=== PATIENT | male | born 1955 | race Caucasian/White ===

== ENCOUNTER 2020-04-19 06:52 | Outpatient (RCR) | payer BC, SELFPAY ==
[2020-04-19] MEDS: COVID-19 VACC, MRNA(PFIZER)/PF 30 MCG/0.3 ML SYRINGE IM (14:25)
[2020-05-10] MEDS: COVID-19 VACC, MRNA(PFIZER)/PF 30 MCG/0.3 ML SYRINGE IM (13:46)
== END 2020-07-16 23:59 ==
LOC: IMMUN 06:52
PROVIDERS: PCP Family Medicine; Referring Provider Family Medicine; Visit Provider Family Medicine
DX: Z23 Encounter for immunization (principal)
CPT/HCPCS: 0001A; 0002A; 91300

== ENCOUNTER 2023-10-09 07:25 | Inpatient (IN) | payer MEDICARE, BC, SELFPAY ==
[2023-10-09] VITALS (22 sets, daily range): BP systolic 93–137; BP diastolic 62–86; PULSE 80–113; RESP 14–24; TEMP 36.4–37.3; O2SAT 88–97; BMI 34.1; BMI 33.7
--- NOTE | 2023-10-09 07:56 | ED.VIS.DYS ---
HPI History of Present Illness Chief Complaint: Cough Informant: patient Onset/Context/Timing Onset: Month(s) (1) Context: gradual Timing: Continuous Quality: Positive for Dyspnea on exertion Worsened by: Exertion Relieved by: Nothing Associated Symptoms cough, rhinorrhea, post nasal drip, fever, sore throat, chills, sweats and clear sputum; Negative for ear pain, white sputum, yellow sputum or green sputum Chest Pain: Positive for None Narrative Narrative: Patient presents with shortness of breath and cough that has been getting worse over the last month. Patient states it is gradually gotten worse. Patient states he has taken 2 courses of antibiotics. Patient states he was recently prescribed doxycycline. Patient states that he finished a Zithromax Z-Gigi yesterday. Patient states he does not feel any better. Patient states his breathing is worse with any exertion. Patient states nothing seems to make it better. Patient admits to a cough with some clear and brown sputum. Patient admits to some postnasal drainage and rhinorrhea. Patient admits to a fever of 102.7 at home today. Patient also admits to some chills and sweats. PFSH PFS Medical History (Updated 10/09/23 @ 12:[address] Maxwell Ledbetter DO) Hypercholesterolemia Hypertension Prediabetes Allergy/AdvReac Type Severity Reaction Status Date / Time No Known Allergies Allergy Verified 10/09/23 07:27 Surgical History Hx of arthroscopic knee surgery Hx of arthroscopy of shoulder Social History (Updated 10/09/23 @ 07:[address] Maxwell Ledbetter DO) Smoking Status: Never smoker alcohol intake: current alcohol intake frequency: a few times a week ROS ROS ED Constitutional Constitutional ED: Reports chills, fever(s) and sweats Eyes Eyes: Denies blurry vision or change in vision ENT ENT ED: Reports rhinorrhea and sore throat Cardiovascular Cardiovascular: Denies chest pain or palpitations Respiratory/Chest Respiratory/Chest: Reports cough and dyspnea Gastrointestinal Gastrointestinal: Denies nausea or vomiting Genitourinary Genitourinary ED: Reports urinary frequency; Denies dysuria or hematuria Musculoskeletal Musculoskeletal: Reports neck pain; Denies back pain Integumentary Reports rash; Denies abscess Neurologic Neurologic: Reports headache(s); Denies weakness Allergic/Immunologic Allergic/Immunologic ED: Denies mouth swelling or urticaria EXAM Physical Exam Const Vital Signs: 10/09/23 07:25 10/09/23 07:27 10/09/23 07:31 Temperature 98.3 F 98.9 F Temperature Source Oral Temporal Pulse Rate 113 H 99 Respiratory Rate 24 H 24 H Respiratory Effort Short of Breath Respiratory Depth Normal Respiratory Pattern Normal Blood Pressure 93/73 104/86 H Blood Pressure Mean 79 92 Pulse Ox 91 94 Oxygen Delivery Method Room Air Room Air Oxygen Flow Rate (L/min) 10/09/23 08:02 10/09/23 08:18 10/09/23 08:31 Temperature 98.5 F Temperature Source Oral Pulse Rate 95 85 Respiratory Rate 16 20 H Respiratory Effort Respiratory Depth Respiratory Pattern Normal Blood Pressure 111/66 Blood Pressure Mean 81 Pulse Ox 88 Oxygen Delivery Method Room Air Room Air Oxygen Flow Rate (L/min) 10/09/23 08:57 10/09/23 08:58 10/09/23 09:00 Temperature 98.5 F Temperature Source Oral Pulse Rate 85 84 Respiratory Rate 16 16 Respiratory Effort Respiratory Depth Respiratory Pattern Blood Pressure 111/66 111/66 Blood Pressure Mean 81 81 Pulse Ox 88 93 92 Oxygen Delivery Method Room Air Nasal Cannula Nasal Cannula Oxygen Flow Rate (L/min) 2 2 10/09/23 10:00 10/09/23 10:00 10/09/23 11:00 Temperature 98.5 F 98.6 F Temperature Source Oral Oral Pulse Rate 83 83 81 Respiratory Rate 16 16 24 H Respiratory Effort Respiratory Depth Respiratory Pattern Blood Pressure 110/65 110/65 102/70 Blood Pressure Mean 80 80 80 Pulse Ox 97 95 92 Oxygen Delivery Method Nasal Cannula Nasal Cannula Nasal Cannula Oxygen Flow Rate (L/min) 2 2 2 10/09/23 12:00 Temperature 98.9 F Temperature Source Temporal Pulse Rate 89 Respiratory Rate 16 Respiratory Effort Respiratory Depth Respiratory Pattern Blood Pressure 112/78 Blood Pressure Mean 89 Pulse Ox 92 Oxygen Delivery Method Nasal Cannula Oxygen Flow Rate (L/min) 2 Positive well nourished and well developed General Appearance ED: well developed and NAD HEENT Reports moist mucous membranes and dry mucous membranes Mouth ED: Yes dry mucous membranes Mouth: dry mucous membranes Eyes PERRL and EOMs intact bilaterally Neck supple and no JVD Resp normal respiratory effort Auscultation: rhonchi throughout Cardio regular rhythm Rate: tachycardic GI non-tender and non-distended Palpation: soft Neuro oriented x3, CN's II-XII intact bilaterally and no sensory deficits noted Kayla Coma Scale: document GCS findings Spontaneous Obeys Commands Oriented 15 Sensorium / Orientation: alert Speech: speech normal Motor Exam: strength 5/5 throughout Psych mental status grossly normal MDM MDM MDM Narrative Medical decision making narrative: Differential diagnosis includes pneumonia, pneumothorax, pulmonary embolism, cardiac dysrhythmia, cardiac ischemia, electrolyte abnormality, bronchitis, and viral illness. EKG will be obtained to assess for cardiac dysrhythmia and cardiac ischemia. Chest x-ray will be obtained to assess for pneumonia and pneumothorax. CBC will be obtained to assess for leukocytosis and anemia. Basic metabolic profile will be obtained to assess for electrolyte abnormality and renal function. D-dimer will be obtained to assess for pulmonary embolism. High-sensitivity troponin will be obtained to assess for cardiac ischemia. COVID-19, influenza, and RSV PCR will be obtained to assess for viral illness. Lab Data Attestation: I reviewed the patient's lab results. Lab results narrative: CBC shows a leukocytosis of 26.7. There is a slight anemia with a hemoglobin of 12.5 and hematocrit 38.1. Basic metabolic profile was reviewed. BUN was slightly elevated at 24 and creatinine was 1.46. Glucose was slightly elevated at 176. The remainder is within normal limits. D-dimer was reviewed and was elevated at 1.21. High-sensitivity troponin was reviewed and was normal at 44. COVID-19 PCR was reviewed and was negative. Influenza PCR was reviewed and was negative for influenza A and influenza B. RSV PCR was reviewed and was negative. Labs: Laboratory Results - last 24 hr 10/09/23 08:16 WBC 26.7 H RBC 4.22 L Hgb 12.5 L Hct 38.1 L MCV 90.3 MCH 29.6 MCHC 32.8 RDW Std Deviation 45.1 H RDW Coeff of Zac 13.7 Plt Count 233 MPV 9.1 Immature Gran % (Auto) 1.400 H Neut % (Auto) 88.8 H Lymph % (Auto) 3.3 L [place] % (Auto) 6.2 Eos % (Auto) 0.1 Baso % (Auto) 0.2 Absolute Neuts (auto) 23.8 H Absolute Lymphs (auto) 0.87 Nucleated RBC % 0 Diff Path Review May foll D-Dimer Quant (PE/DVT) 1.21 H* Sodium 136 Potassium 3.7 Chloride 106 Carbon Dioxide 22.0 Anion Gap 8 BUN 24 H Creatinine 1.46 H Estim Creat Clear Calc 60.40 Est GFR (MDRD) Af Amer 62 Est GFR (MDRD) Non-Af 51 L BUN/Creatinine Ratio 16.4 Glucose 176 H Calcium 9.5 Troponin I High Sens 44 Radiography Chest X-Ray - ED: 2 View, Read by ED Physician, Read by Radiologist, Right Infiltrate and Left Infiltrate CTA PE Study: No Evidence of PE and No Evidence of Dissection Diagnostic Testing: Clinical Impression(s) from Imaging Studies Chest X-Ray 10/09/23 08:02 IMPRESSION: Bibasilar opacifications likely representing atelectasis but could also be a diffuse inflammatory process as well. No demonstrated effusions, follow-up recommended to assure resolution Electronically Signed: Giovani Ayala MD at 8:49 EDT , Chest CTA 10/09/23 08:45 IMPRESSION: No demonstrated PE, or thoracic aortic aneurysm or dissection Diffuse patchy airspace opacifications in both lung reilly without effusions. Follow-up recommended to ensure complete resolution. This pattern of opacification is often seen with Covid pneumonia. No suspicious adenopathy Degenerative bony changes Electronically Signed: Giovani Ayala MD at 9:51 EDT , PA and lateral chest x-ray was obtained. There are 2 views. On my independent interpretation, lung reilly show bibasilar infiltrates, worse on the right. There is normal cardiac silhouette. Bony thorax is normal. Radiologist also interpreted the x-ray and agrees. Because of the elevated D-dimer, CTA of the chest was obtained. There is no evidence of pulmonary embolism or aortic dissection. There are bibasilar infiltrates noted. This was interpreted by the radiologist and was also independently reviewed by myself. EKG Initial EKG: Attestation: I personally reviewed and interpreted this EKG as follows: Interpretation: Sinus Rhythm (91) and Non-Specific ST Changes Comments: EKG was obtained. On my independent interpretation, it showed a normal sinus rhythm with a rate of 91. LA interval was borderline at 204 ms. QRS interval was normal at 114 ms. QTc interval was normal at 435 ms. There is left axis deviation at -42. There are nonspecific ST-T wave changes noted in the anterior leads. There are no prior EKGs available for comparison. Prior EKG tracings: not available for review Prior: No Prior Management Discussion w/another healthcare provider: Hospitalist Treatment and Re-Evaluation :: Since the patient recently completed a course of Zithromax, patient was started on Levaquin here. Patient ambulated in the emergency department on room air and his pulse oximeter dropped to 88% while ambulating. Case was discussed with the hospitalist for admission. He will admit the patient to his service. Patient understood and was agreeable with the plan. All questions were answered. Discharge Plan Triage Chief Complaint: Cough ED Provider: Maxwell Ledbetter Dx/Rx/DC Orders Clinical Impression: Pneumonia, Hypoxia, Leukocytosis Primary Care Provider: Mookie Sandoval Referrals: Tapan Chowdhury MD [Non-Staff] - Print Language: [place] Disposition Disposition: Acute Care Hospital [facility]
--- NOTE | 2023-10-09 08:02 | RAD_ITS ---
STUDY: X-RAY CHEST REASON FOR EXAM: Male, 68 years old. Chest pain and cough TECHNIQUE: PA and lateral views of the chest. COMPARISON: None. FINDINGS: EKG leads overlie the chest Lungs are expanded with bibasilar opacifications likely representing atelectasis but this could represent early inflammatory process as well. Follow-up recommended to assure resolution. No associated effusions. Normal size heart. Normal mediastinum and antoinette. Normal visualized pulmonary arteries. Normal visualized aortic arch and descending thoracic aorta. There are diffuse degenerative changes of the visualized thoracic spine. Normal visualized ribs, clavicles, and shoulders. There is no demonstrated abnormality of the visualized soft tissue structures of the upper abdomen. RAD/Chest PA and Lateral IMPRESSION: Bibasilar opacifications likely representing atelectasis but could also be a diffuse inflammatory process as well. No demonstrated effusions, follow-up recommended to assure resolution Electronically Signed: Giovani Ayala MD at 8:49 EDT ,
--- NOTE | 2023-10-09 08:02 | EKG12_ITS ---
Test Reason : SOB Blood Pressure : / mmHG Vent. Rate : 091 BPM Atrial Rate : 091 BPM P-R Int : 204 ms QRS Dur : 114 ms QT Int : 354 ms P-R-T Axes : 017 -42 012 degrees QTc Int : 435 ms Normal sinus rhythm Left axis deviation Septal infarct , age undetermined Abnormal ECG Confirmed by ERNESTO KAY, MIKO ([id number]), continuity editor CORY CHISHOLM ([id number]) on 10/12/2023 8:14:59 AM Referred By: Confirmed By:MIKO OROZCO MD
[2023-10-09] MEDS: Ipratropium/Albuterol Sulfate 3 ML AMPUL.NEB INHALATION ×3 (08:16→23:55)
[2023-10-09 08:26] LABS: Absolute Lymphocyte Count 0.87 X10^3/uL (0.83-4.51); Absolute Neutrophil Count 23.8 X10^3/uL (2.0-7.7); Basophil# 0.05 X10^3/uL; Basophil% 0.2 % (0-1); Eosinophil# 0.02 X10^3/uL; Eosinophils% 0.1 % (0-5); Hematocrit 38.1 % (40-54); Hemoglobin 12.5 g/dL (13.0-16.5); Lymphocyte # 0.87 X10^3/ul (0.83-4.51); Lymphocyte % 3.3 % (19-41); Mean Corp Hgb Conc 32.8 g/dL (32-36); Mean Corpuscular Hgb 29.6 pg (27.0-32.0); Mean Corpuscular Volume 90.3 fL (80-94); Mean Platelet Vol. 9.1 fl (6.2-12.0); Monocyte# 1.66 X10^3/uL; Monocyte% 6.2 % (0-10); NRBC Flagged by Analyzer 0 % (0-5); Neutrophil # 23.75 X10^3/uL (2.7-7.7); Neutrophil % 88.8 % (47-70); POSITIVE DIFFERENTIAL YES; Platelet Count 233 K/mm3 (150-450); RBC Distribution Width CV 13.7 % (11.6-14.6); RBC Distribution Width SD 45.1 fl (35.1-43.9); Red Blood Count 4.22 M/mm3 (4.6-6.2); White Blood Count 26.7 K/mm3 (4.4-11.0)
[2023-10-09 08:30] LABS: Differential Indicated SCAN CRITERIA MET
[2023-10-09 08:40] LABS: D-Dimer Quantitative (DVT/PE) 1.21 FEU/ug/m (0.27-0.49)
[2023-10-09 08:42] LABS: Anion Gap 8 (5-15); BUN 24 mg/dL (7-18); BUN/Creat Ratio 16.4 RATIO (10-20); Calcium,Total 9.5 mg/dL (8.5-10.1); Chloride 106 mmol/L (98-107); Creatinine, Serum 1.46 mg/dL (0.70-1.30); EST Glomerular Filtration Rate 51 mL/min (>60); Est Glom Filt Rate - Afr Amer 62 mL/min (>60); Glucose 176 mg/dL (74-106); Potassium 3.7 mmol/L (3.5-5.1); Sodium Level 136 mmol/L (136-145); Troponin-I HS 44 pg/mL (3.0-78.0)
--- NOTE | 2023-10-09 08:45 | CT_ITS ---
STUDY: CTA CHEST REASON FOR EXAM: Male, 68 years old. Atypical chest pain, elevated d-dimer RADIATION DOSAGE (If Supplied By Facility): CTDIvol = ( 11.47 ) mGy, DLP = ( 565.48 ) mGycm TECHNIQUE: The examination was performed with the intravenous administration of IV 100mL Isovue-370. Post-processing of the angiographic images was performed, with multiplanar reformation and 3D reconstruction. Individualized dose optimization techniques were used for this CT. COMPARISON: None. FINDINGS: Normal enhancement of the main pulmonary artery and right and left pulmonary arteries. Normal enhancement of the bilateral peripheral pulmonary arteries. There is no demonstrated pulmonary embolism. Normal thoracic aorta and visualized great vessels. There is no demonstrated aortic dissection. Normal heart and pericardium. There are calcifications of the coronary arteries. Normal mediastinum. Normal hilar regions. There is peribronchial thickening. The lungs are well expanded. Diffuse patchy airspace opacifications in both lung reilly without effusions suggest multifocal pneumonitis is often seen with Covid pneumonia. Normal pleura. Normal chest wall structures. Normal osseous structures. Normal visualized upper abdomen. CT/CTA Chest W/WO Contrast IMPRESSION: No demonstrated PE, or thoracic aortic aneurysm or dissection Diffuse patchy airspace opacifications in both lung reilly without effusions. Follow-up recommended to ensure complete resolution. This pattern of opacification is often seen with Covid pneumonia. No suspicious adenopathy Degenerative bony changes Electronically Signed: Giovani Ayala MD at 9:51 EDT ,
[2023-10-09] MEDS: 0.9% Normal Saline (1000mL) 1,000 ML 1000 ML IV (08:53)
[2023-10-09] MEDS: levoFLOXacin IV 750 MG/150 ML BAG 100 MG IV (10:23)
--- NOTE | 2023-10-09 13:00 | HP.PCM.HOS_ITS ---
HPI - General General Date of Service: 10/09/23 Chief Complaint: rigors. malaise. HPI Narrative OZ FELIX, is a 68 M who presents with rigors and fever. Patient has not been feeling well over the past month and has actually been on couple rounds of antibiotics including doxycycline and azithromycin. Despite that he has gotten worse. Over the past few days. At night, has been having fever with rigors and then breaks out in sweats once his fever peaks. He had a fever this morning of 102.7. He presented to the emergency room and had a elevated D-dimer and CTA of the chest showed bilateral infiltrate more so on the right. Patient received levofloxacin in the emergency room. Coughing up dark phlegm at times. [facility] Medical History Hypercholesterolemia Hypertension Prediabetes Allergy/AdvReac Type Severity Reaction Status Date / Time No Known Allergies Allergy Verified 10/09/23 07:27 Surgical History Hx of arthroscopic knee surgery Hx of arthroscopy of shoulder Social History Smoking Status: Never smoker alcohol intake: current alcohol intake frequency: a few times a week ROS ROS Narrative All review of systems were negative except as mentioned above in the history of present illness and the other review of systems. Vital Signs Vital Signs Vital Signs: 10/09/23 07:25 10/09/23 07:27 10/09/23 07:31 Temperature 36.8 C 37.2 C Temperature Source Oral Temporal Pulse Rate 113 H 99 Respiratory Rate 24 H 24 H Respiratory Effort Short of Breath Respiratory Depth Normal Respiratory Pattern Normal Blood Pressure 93/73 104/86 H Blood Pressure Mean 79 92 Pulse Ox 91 94 Oxygen Delivery Method Room Air Room Air Oxygen Flow Rate (L/min) 10/09/23 08:02 10/09/23 08:18 10/09/23 08:31 Temperature 36.9 C Temperature Source Oral Pulse Rate 95 85 Respiratory Rate 16 20 H Respiratory Effort Respiratory Depth Respiratory Pattern Normal Blood Pressure 111/66 Blood Pressure Mean 81 Pulse Ox 88 Oxygen Delivery Method Room Air Room Air Oxygen Flow Rate (L/min) 10/09/23 08:57 10/09/23 08:58 10/09/23 09:00 Temperature 36.9 C Temperature Source Oral Pulse Rate 85 84 Respiratory Rate 16 16 Respiratory Effort Respiratory Depth Respiratory Pattern Blood Pressure 111/66 111/66 Blood Pressure Mean 81 81 Pulse Ox 88 93 92 Oxygen Delivery Method Room Air Nasal Cannula Nasal Cannula Oxygen Flow Rate (L/min) 2 2 10/09/23 10:00 10/09/23 10:00 10/09/23 11:00 Temperature 36.9 C 37.0 C Temperature Source Oral Oral Pulse Rate 83 83 81 Respiratory Rate 16 16 24 H Respiratory Effort Respiratory Depth Respiratory Pattern Blood Pressure 110/65 110/65 102/70 Blood Pressure Mean 80 80 80 Pulse Ox 97 95 92 Oxygen Delivery Method Nasal Cannula Nasal Cannula Nasal Cannula Oxygen Flow Rate (L/min) 2 2 2 10/09/23 12:00 Temperature 37.2 C Temperature Source Temporal Pulse Rate 89 Respiratory Rate 16 Respiratory Effort Respiratory Depth Respiratory Pattern Blood Pressure 112/78 Blood Pressure Mean 89 Pulse Ox 92 Oxygen Delivery Method Nasal Cannula Oxygen Flow Rate (L/min) 2 Weight Weight: 107.955 kg Body Mass Index (BMI) 34.1 Physical Exam Narrative - Physical Exam General: Alert, Oriented x3, Cooperative HEENT: Atraumatic, PERRLA, EOMI, Normocephalic Oral: Moist Mucosa, No Gingival or Mucosal Lesions/ Ulcerations Neck: Supple, No JVD, Negative Carotid Bruits Lungs: Right-sided crackles., Normal air movement Cardiovascular: Regular rate, Normal S1, Normal S2, No murmurs Abdomen: Bowel Sounds Present, Soft, Non Tender, Non-Distended, No Hepato- splenomegaly Extremities: No clubbing, No cyanosis, No edema, Capillary Refill Less than 3 Seconds Skin: No rashes, No breakdown Musculoskeletal: No Tenderness to Palpation of Joints or Extremities Neurological: Neuro grossly intact Psych/Mental Status: Normal Affect, Appropriate Results Lab / Micro Data Attestation: I reviewed the patient's lab results. 10/09/23 08:16 10/09/23 08:16 Labs: Laboratory Results - last 24 hr 10/09/23 08:16: WBC 26.7 H, RBC 4.22 L, Hgb 12.5 L, Hct 38.1 L, MCV 90.3, MCH 29.6, MCHC 32.8, RDW Std Deviation 45.1 H, RDW Coeff of Zac 13.7, Plt Count 233, MPV 9.1, Immature Gran % (Auto) 1.400 H, Neut % (Auto) 88.8 H, Lymph % (Auto) 3.3 L, [place] % (Auto) 6.2, Eos % (Auto) 0.1, Baso % (Auto) 0.2, Absolute Neuts (auto) 23.8 H, Absolute Lymphs (auto) 0.87, Nucleated RBC % 0, Diff Path Review June, D-Dimer Quant (PE/DVT) 1.21 H*, Sodium 136, Potassium 3.7, Chloride 106, Carbon Dioxide 22.0, Anion Gap 8, BUN 24 H, Creatinine 1.46 H, Estim Creat Clear Calc 60.40, Est GFR (MDRD) Af Amer 62, Est GFR (MDRD) Non-Af 51 L, BUN/Creatinine Ratio 16.4, Glucose 176 H, Calcium 9.5, Troponin I High Sens 44 Micro: Microbiology 10/09/23 08:16 Mucosa - Nasopharyngeal SARS-CoV-2, Influenza & RSV (PCR) - Final Imaging Radiology Impression Chest X-Ray 10/09/23 08:02 IMPRESSION: Bibasilar opacifications likely representing atelectasis but could also be a diffuse inflammatory process as well. No demonstrated effusions, follow-up recommended to assure resolution Electronically Signed: Giovani Ayala MD at 8:49 EDT , Chest CTA 10/09/23 08:45 IMPRESSION: No demonstrated PE, or thoracic aortic aneurysm or dissection Diffuse patchy airspace opacifications in both lung reilly without effusions. Follow-up recommended to ensure complete resolution. This pattern of opacification is often seen with Covid pneumonia. No suspicious adenopathy Degenerative bony changes Electronically Signed: Giovani Ayala MD at 9:51 EDT , Assessment & Plan Assessment/Plan (1) Pneumonia: PLAN: Suspected pneumococcal. Failed antibiotics with doxycycline and azithromycin. CTA of the chest showed bilateral infiltrates more prominent on the right in the upper and lower lobes. He received levofloxacin in the emergency room and will continue that on the floor. Additionally, patient will have bronchodilators, pulmonary toilet as well as Mucinex. Check sputum culture, check strep and Legionella antigens. PLAN: Plan Chronic conditions * Diabetes mellitus type 2: Continue with home medications once those are reconciled. Sliding scale insulin. Check A1c VTE prophylaxis with enoxaparin CODE STATUS: Addressed with the patient. Patient wishes to be full code. Charges/Coding Visit Charges Inpatient E&M: 36277 Init Hosp L2
[2023-10-09] MEDS: Acetaminophen 325 MG Tablet 650 MG PO (15:22)
[2023-10-09] MEDS: guaiFENesin 1,200 MG Tablet 1200 MG PO ×2 (16:11→21:33)
[2023-10-09 16:38] LABS: Bedside Glucose 163 mg/dL (74-106)
[2023-10-09 18:14] LABS: Hemoglobin A1c 7.2 % (3.8-5.6)
[2023-10-10] VITALS (12 sets, daily range): BP systolic 112–138; BP diastolic 62–88; PULSE 73–94; RESP 16–20; TEMP 36.6–36.9; O2SAT 92–97
[2023-10-10] MEDS: Ipratropium/Albuterol Sulfate 3 ML AMPUL.NEB INHALATION ×6 (03:27→23:41)
[2023-10-10 06:12] LABS: Basophil# 0.04 X10^3/uL; Basophil% 0.2 % (0-1); Eosinophil# 0.04 X10^3/uL; Eosinophils% 0.2 % (0-5); Hematocrit 34.5 % (40-54); Hemoglobin 11.3 g/dL (13.0-16.5); Lymphocyte % 9.3 % (19-41); Mean Corp Hgb Conc 32.8 g/dL (32-36); Mean Corpuscular Hgb 29.7 pg (27.0-32.0); Mean Corpuscular Volume 90.6 fL (80-94); Mean Platelet Vol. 9.6 fl (6.2-12.0); Monocyte# 1.18 X10^3/uL; Monocyte% 5.5 % (0-10); NRBC Flagged by Analyzer 0 % (0-5); Neutrophil # 18.04 X10^3/uL (2.7-7.7); Platelet Count 244 K/mm3 (150-450); RBC Distribution Width CV 13.8 % (11.6-14.6); RBC Distribution Width SD 46.1 fl (35.1-43.9); Red Blood Count 3.81 M/mm3 (4.6-6.2); White Blood Count 21.5 K/mm3 (4.4-11.0)
[2023-10-10 07:05] LABS: Anion Gap 9 (5-15); BUN 21 mg/dL (7-18); BUN/Creat Ratio 19.1 RATIO (10-20); Calcium,Total 9.4 mg/dL (8.5-10.1); Chloride 106 mmol/L (98-107); EST Glomerular Filtration Rate 71 mL/min (>60); Est Glom Filt Rate - Afr Amer 86 mL/min (>60); Estimated Creatinine Clearance 79.75 ml/min; Glucose 143 mg/dL (74-106); Potassium 3.6 mmol/L (3.5-5.1); Sodium Level 137 mmol/L (136-145)
[2023-10-10] MEDS: Enoxaparin 40 MG/0.4 ML Syringe SC (08:29)
[2023-10-10] MEDS: guaiFENesin 1,200 MG Tablet 1200 MG PO ×2 (08:29→20:39)
--- NOTE | 2023-10-10 08:42 | PN.HOSP_ITS ---
Reason for Visit Reason for Visit: Diagnoses Pneumonia, unspecified organism (10/09/23) Subjective Subjective Breathing much better. States that his fever and chills are much better overall. Still coughing up phlegm. Breathing better but does get short of breath when he talks and coughs but with activity he seems to be doing okay. Objective Data Objective Data Vital Signs: Vital Signs Temp Pulse Resp BP Pulse Ox O2 Del Method O2 Flow Rate 36.7 C 75 19 H 112/88 H 94 Nasal Cannula 1 10/10/23 08:21 10/10/23 08:21 10/10/23 08:21 10/10/23 08:21 10/10/23 08:21 10/10/23 08:21 10/10/23 08:21 Oxygen Flow Rate (L/min) 1 Oxygen Delivery Method Nasal Cannula Weight: 106.8 kg Body Mass Index (BMI) 33.7 Intake & Output: Intake and Output for Last 24 Hours 10/08/23 10/09/23 10/10/23 23:59 23:59 23:59 Intake Total 2150 / 2600 750 / 750 Balance 2150 / 2600 750 / 750 Lab / Micro Data 10/10/23 05:25 10/10/23 05:25 Labs: Laboratory Results - last 24 hr 10/09/23 08:15: Hemoglobin A1c 7.2 H 10/09/23 08:16: Diff Path Review June, Sodium 136, Potassium 3.7, Chloride 106, Carbon Dioxide 22.0, Anion Gap 8, BUN 24 H, Creatinine 1.46 H, Estim Creat Clear Calc 60.40, Est GFR (MDRD) Af Amer 62, Est GFR (MDRD) Non-Af 51 L, BUN/Creatinine Ratio 16.4, Glucose 176 H, Calcium 9.5, Troponin I High Sens 44 10/09/23 16:14: POC Glucose 163 H 10/10/23 05:25: WBC 21.5 H, RBC 3.81 L, Hgb 11.3 L, Hct 34.5 L, MCV 90.6, MCH 29.7, MCHC 32.8, RDW Std Deviation 46.1 H, RDW Coeff of Zac 13.8, Plt Count 244, MPV 9.6, Immature Gran % (Auto) 0.800, Neut % (Auto) 84.0 H, Lymph % (Auto) 9.3 L, [place] % (Auto) 5.5, Eos % (Auto) 0.2, Baso % (Auto) 0.2, Absolute Neuts (auto) 18.0 H, Absolute Lymphs (auto) 2.00, Nucleated RBC % 0, Sodium 137, Potassium 3.6, Chloride 106, Carbon Dioxide 22.0, Anion Gap 9, BUN 21 H, Creatinine 1.10, Estim Creat Clear Calc 79.75, Est GFR (MDRD) Af Amer 86, Est GFR (MDRD) Non-Af 71, BUN/Creatinine Ratio 19.1, Glucose 143 H, Calcium 9.4 Micro: Microbiology 10/09/23 15:30 Nasal Secretion MRSA (PCR) - Final 10/09/23 15:30 Urine, Clean Catch Legionella Antigen - Final 10/09/23 15:30 Urine, Clean Catch Streptococcus pneumoniae Antigen (M - Final 10/09/23 08:16 Mucosa - Nasopharyngeal SARS-CoV-2, Influenza & RSV (PCR) - Final Radiography Diagnostic Testing: Radiology Impression Chest X-Ray 10/09/23 08:02 IMPRESSION: Bibasilar opacifications likely representing atelectasis but could also be a diffuse inflammatory process as well. No demonstrated effusions, follow-up recommended to assure resolution Electronically Signed: Giovani Ayala MD at 8:49 EDT , Chest CTA 10/09/23 08:45 IMPRESSION: No demonstrated PE, or thoracic aortic aneurysm or dissection Diffuse patchy airspace opacifications in both lung reilly without effusions. Follow-up recommended to ensure complete resolution. This pattern of opacification is often seen with Covid pneumonia. No suspicious adenopathy Degenerative bony changes Electronically Signed: Giovani Ayala MD at 9:51 EDT , Physical Exam Const alert and no apparent distress HEENT head/scalp atraumatic and moist oral mucous membranes Resp normal respiratory effort and no retractions Resp Narrative: Coarse breath sounds bilaterally Cardio regular rate, regular rhythm, S1 normal heart sound and S2 normal heart sound GI normal to inspection, nondistended, normoactive bowel sounds, soft to palpation, non-tender and non-distended Neuro Sensorium / Orientation: awake and alert Assessment & Plan Assessment/Plan (1) Pneumonia: PLAN: Suspected pneumococcal. Failed antibiotics with doxycycline and azithromycin. CTA of the chest showed bilateral infiltrates more prominent on the right in the upper and lower lobes. He received levofloxacin in the emergency room and will continue that on the floor. Additionally, patient will have bronchodilators, pulmonary toilet as well as Mucinex. Sputum culture pending. Strep and Legionella antigens negative. MRSA swab negative. PLAN: Plan Chronic conditions * Diabetes mellitus type 2: Continue with home medications once those are reconciled. Sliding scale insulin. A1c 7.2 VTE prophylaxis with enoxaparin CODE STATUS: Addressed with the patient. Patient wishes to be full code. Disposition: eventually to home. Patient doing well but given the fact that he failed outpatient antibiotics x 2 we will give him another day. Hopefully the patient will be ready for discharge on the second. Charges/Coding Visit Charges Inpatient E&M: 90994 Subs Hosp L2
[2023-10-10] MEDS: 0.9% Saline Lock 10 ML Syringe IV (10:15)
[2023-10-10] MEDS: levoFLOXacin IV 750 MG/150 ML BAG 100 MG IV (10:15)
[2023-10-10 11:47] LABS: Bedside Glucose 136 mg/dL (74-106)
[2023-10-10 13:00] LABS: Bedside Glucose 130 mg/dL (74-106)
[2023-10-10] MEDS: Losartan Potassium 25 MG Tablet PO (16:12)
[2023-10-10] MEDS: Sertraline 100 MG Tablet PO (16:12)
[2023-10-10 16:34] LABS: Bedside Glucose 115 mg/dL (74-106)
[2023-10-10] MEDS: Atorvastatin Calcium 20 MG Tablet PO (20:39)
[2023-10-10 23:35] LABS: Bedside Glucose 142 mg/dL (74-106)
[2023-10-11] MEDS: Guaifenesin/Codeine 5 ML WCH UDC PO (00:03)
[2023-10-11 02:29] VITALS: BP 115/94; PULSE 79; RESP 18; TEMP 36.9; O2SAT 94
[2023-10-11 03:00] VITALS: O2SAT 94
[2023-10-11 06:35] LABS: Absolute Lymphocyte Count 2.02 X10^3/uL (0.83-4.51); Absolute Neutrophil Count 12.6 X10^3/uL (2.0-7.7); Basophil# 0.04 X10^3/uL; Basophil% 0.3 % (0-1); Eosinophil# 0.11 X10^3/uL; Eosinophils% 0.7 % (0-5); Hematocrit 37.1 % (40-54); Hemoglobin 12.1 g/dL (13.0-16.5); Lymphocyte # 2.02 X10^3/ul (0.83-4.51); Lymphocyte % 12.8 % (19-41); Mean Corp Hgb Conc 32.6 g/dL (32-36); Mean Corpuscular Hgb 29.5 pg (27.0-32.0); Mean Corpuscular Volume 90.5 fL (80-94); Mean Platelet Vol. 9.4 fl (6.2-12.0); Monocyte# 0.87 X10^3/uL; Monocyte% 5.5 % (0-10); NRBC Flagged by Analyzer 0 % (0-5); Neutrophil # 12.59 X10^3/uL (2.7-7.7); Platelet Count 284 K/mm3 (150-450); RBC Distribution Width CV 13.5 % (11.6-14.6); White Blood Count 15.7 K/mm3 (4.4-11.0)
[2023-10-11] MEDS: Ipratropium/Albuterol Sulfate 3 ML AMPUL.NEB INHALATION (06:54)
[2023-10-11 06:55] VITALS: PULSE 59; RESP 18; O2SAT 97
[2023-10-11 07:02] LABS: Anion Gap 7 (5-15); BUN 20 mg/dL (7-18); BUN/Creat Ratio 19.2 RATIO (10-20); Calcium,Total 9.7 mg/dL (8.5-10.1); Chloride 108 mmol/L (98-107); Creatinine, Serum 1.04 mg/dL (0.70-1.30); EST Glomerular Filtration Rate 76 mL/min (>60); Est Glom Filt Rate - Afr Amer 92 mL/min (>60); Estimated Creatinine Clearance 84.35 ml/min; Glucose 154 mg/dL (74-106); Potassium 3.9 mmol/L (3.5-5.1); Sodium Level 136 mmol/L (136-145)
[2023-10-11 07:07] LABS: Bedside Glucose 156 mg/dL (74-106)
[2023-10-11] MEDS: Losartan Potassium 25 MG Tablet PO (08:17)
[2023-10-11] MEDS: Enoxaparin 40 MG/0.4 ML Syringe SC (08:18)
[2023-10-11] MEDS: guaiFENesin 1,200 MG Tablet 1200 MG PO (08:18)
[2023-10-11] MEDS: Sertraline 100 MG Tablet PO (08:18)
[2023-10-11] MEDS: Empagliflozin 25 MG Tablet PO (08:18)
[2023-10-11 08:21] VITALS: O2SAT 87; O2SAT 90; O2SAT 96
[2023-10-11 08:39] VITALS: BP 119/75; PULSE 63; RESP 16; TEMP 36.7; O2SAT 96
--- NOTE | 2023-10-11 09:43 | PCM.DC.SUM ---
Providers Date of Admission: 10/09/23 Date of Discharge: 10/11/23 Primary Care Physician: Dr. Mookie Sandoval DO Reason For Visit: PNEUMONIA Diagnosis Discharge Diagnosis (1) Pneumonia: Status: Acute Code(s): J18.9 - Pneumonia, unspecified organism Medications at Discharge Home Medications atorvastatin 20 mg tablet 20 mg PO DAILY cholesterol 10/09/23 dapagliflozin propanediol 10 mg tablet (Farxiga) 10 mg PO DAILY blood sugar 10/09/23 semaglutide 2 mg/dose (8 mg/3 mL) subcutaneous pen injector (Ozempic) 2 mg subcut QWEEK diabetes 10/09/23 sertraline 100 mg tablet 100 mg PO DAILY anxiety 10/09/23 valsartan 80 mg tablet 80 mg PO DAILY cholesterol 10/09/23 codeine 10 mg-guaifenesin 100 mg/5 mL oral liquid 5 ml PO Q6H PRN cough #118 mL 10/11/23 guaifenesin 1,200 mg tablet, extended release 12 hr (Mucus Relief ER) 1,200 mg PO BID #0 tabs 10/11/23 levofloxacin 750 mg tablet 750 mg PO Q24H #5 tabs 10/11/23 Hospital Course Operations None Procedures EKG and - (CXR/Chest CTA) Summary of Care Provided Minutes Spent on Discharge: 38 Hospital Course: Mr. Castro is a 68-year-old white male who presented to the emergency department [facility] on 10/09/2023 with fevers and rigors. He had not been feeling well for about a month prior to presentation and had been on a couple rounds of outpatient antibiotics including doxycycline and azithromycin but despite that had gotten worse. At night he been having fever with rigors and then had been breaking out in sweats once his fever peaked. Fever on the morning of presentation at home was 102.7. He had associated cough, rhinorrhea, postnasal drip, sore throat, chills and clear sputum production that was slowly progressing towards darker sputum production. Vital signs on presentation showed temperature of 98.3, heart rate 113, respiratory rate 24, blood pressure was 93/73 and pulse ox was 88% on room air. He was placed on 2 L nasal cannula which improved his oxygen saturation to 92 to 93%. CBC on presentation showed a markedly elevated white count 26.7 with a significant left shift having an 88.8% neutrophilia. Chemistry panel showed elevated serum creatinine 1.46 which has since come down to 1.04. Baseline on presentation was unknown. Blood sugars were noted to be elevated and hemoglobin A1c was obtained and found to be 7.2. Troponin was 44. D-dimer was elevated at 1.21 and therefore CTA of his chest was performed. Initial chest x-ray showed bibasilar opacifications consistent with atelectasis versus diffuse inflammatory process and CTA of the chest showed no PE or aneurysm/dissection but did show diffuse patchy airspace opacifications in bilateral lung reilly without effusion and no suspicious adenopathy. With his clinical picture but he was felt to have a pneumonia and blood and sputum culture was obtained. Strep pneumo and Legionella antigens were unremarkable. COVID/flu/RSV was negative. Blood cultures were pending at the time of discharge and his sputum culture shows gram-positive diplococci that were being assessed for strep pneumo. On admission he was placed on IV Levaquin, pulmonary toilet, Mucinex and given incentive spirometry and Acapella. Within 24 hours of being on antibiotics his fever curve dramatically reduced and he was afebrile. His chills have resolved. He received a total of 2 days of IV antibiotics and his white count improved to 15.7 at the time of discharge. We assessed an ambulatory pulse ox prior to discharge as at rest he was 97% on room air in which he was 91-92% with exertion. He was anxious to go home and we felt he was medically stable to do so. He will be discharged on another 5 days of Levaquin, cough syrup and he was asked to continue his incentive spirometry and Acapella for at least another 5 to 7 days after discharge and continue Mucinex for another 5 to 7 days. He was instructed to increase his activity slowly as his tolerance would likely be limited initially and improved with time. Prescription for the antibiotic and antitussive were sent to his local pharmacy the patient was discharged home in stable condition on 10/11/2023. He was asked to follow-up with his primary care physician in the next week. Discharge diagnoses: Community-acquired pneumonia-suspect strep pneumo Elevated serum creatinine Leukocytosis Mild normocytic anemia Hyperglycemia in the setting DM-2 Hyperlipidemia Essential hypertension Depression Obesity Physical Exam Const alert, oriented x3, no apparent distress, no limitations and well nourished; Negative for average body habitus Constitutional Narrative: Obese, upper middle-aged, white male, walking around the room independently as he is just showered, appears comfortable, nontoxic-appearing General Appearance: cooperative, comfortable, well kempt and well developed Orientation / Consciousness: awake, oriented to person and oriented to time Exam Limitations: no limitations Nutritional Appearance: obese HEENT normocephalic, head/scalp atraumatic, hearing grossly normal bilaterally and moist oral mucous membranes HEENT Narrative: Mallampati 3, no thrush Eyes PERRL, EOMs intact bilaterally and conjunctivae normal Eyes Narrative: No scleral icterus Neck no lymphadenopathy and supple Neck Narrative: Neck is short and thick, trachea midline, no noted thyroid enlargement Resp normal respiratory effort, no retractions and no use of accessory muscles Resp Narrative: Coarse breath sounds at the bases bilaterally Auscultation: Negative for rhonchi or wheezes Cardio regular rate, regular rhythm, S1 normal heart sound, S2 normal heart sound, no murmurs, no rub, no gallops and no clicks GI normal to inspection, nondistended, normoactive bowel sounds, soft to palpation and non-tender Extremity no clubbing, cyanosis or edema Extremity Narrative: Radial and pedal pulses are 2+ Skin no rashes or lesions noted, no wounds, skin turgor normal and no jaundice Neuro oriented x3, CN's II-XII intact bilaterally, moves all extremities and no focal motor deficits Neuro Narrative: Normal gait Speech: speech normal Psych affect normal Psych Narrative: Eye contact is good, patient interacts appropriately, very pleasant Weight / BMI Weight Weight: 106.8 kg Body Mass Index (BMI) 33.7 ABG / Lab / Microbiology Data 10/11/23 05:55 10/11/23 05:55 Laboratory: Laboratory Results - last 24 hr 10/10/23 06:07: POC Glucose 136 H 10/10/23 12:03: POC Glucose 130 H 10/10/23 16:11: POC Glucose 115 H 10/10/23 23:17: POC Glucose 142 H 10/11/23 05:55: WBC 15.7 H, RBC 4.10 L, Hgb 12.1 L, Hct 37.1 L, MCV 90.5, MCH 29.5, MCHC 32.6, RDW Std Deviation 45.0 H, RDW Coeff of Zac 13.5, Plt Count 284, MPV 9.4, Immature Gran % (Auto) 0.700, Neut % (Auto) 80.0 H, Lymph % (Auto) 12.8 L, [place] % (Auto) 5.5, Eos % (Auto) 0.7, Baso % (Auto) 0.3, Absolute Neuts (auto) 12.6 H, Absolute Lymphs (auto) 2.02, Nucleated RBC % 0, Sodium 136, Potassium 3.9, Chloride 108 H, Carbon Dioxide 21.0, Anion Gap 7, BUN 20 H, Creatinine 1.04, Estim Creat Clear Calc 84.35, Est GFR (MDRD) Af Amer 92, Est GFR (MDRD) Non-Af 76, BUN/Creatinine Ratio 19.2, Glucose 154 H, Calcium 9.7 10/11/23 06:45: POC Glucose 156 H Microbiology: Microbiology 10/09/23 12:54 Sputum, Expectorated/Coughed Gram Stain - Final 10/09/23 12:54 Sputum, Expectorated/Coughed Respiratory Culture - Preliminary 10/09/23 15:30 Nasal Secretion MRSA (PCR) - Final 10/09/23 15:30 Urine, Clean Catch Legionella Antigen - Final 10/09/23 15:30 Urine, Clean Catch Streptococcus pneumoniae Antigen (M - Final 10/09/23 08:16 Mucosa - Nasopharyngeal SARS-CoV-2, Influenza & RSV (PCR) - Final D/C Instructions Discharge Diet: Low fat / Low cholesterol Discharge Activity: Return to Normal Activity (Advance activity slowly) Return to work on: 10/13/23 Meaningful Use Info Meaningful Use Meaningful Use Diagnoses (Choose all that apply): None applicable Ischemic Stroke Statin Dosing Therapy Reference: STATIN DOSE THERAPY REFERENCE: * Patients > 75 years receive moderate or high dose statin therapy. * Patients 75 years or YOUNGER should receive HIGH intensity statin dose unless contraindicated. You will be required to document reason for non-treatment if statin daily dose does not meet guidelines. HIGH DOSE STATIN THERAPY DAILY Atorvastatin > than or = to 40 mg Rosuvastatin > than or = to 20 mg Amlodipine + Atorvastatin > than or = to 2.5/40 mg Ezetimibe + Simvastatin 10/80 mg Simvastatin 80mg Discharge Plan Admission Admit Date/Time: 10/09/23 12:28 Primary Reason for Your Visit: Fever/chills Attending Provider: Ivelisse Chowdhury Primary Care Provider: Mookie Sandoval Consulting Providers: Maxwell Martell Instructions Additional Instructions / Restrictions: 1. Please complete your entire course of antibiotics 2. Please use your incentive spirometer and Acapella 3-4 times a day 10 times slowly 3. Continue Mucinex 1200 mg twice daily for another 10 days 4. Would recommend taking an easy and slowly increasing activity over the next 5 to 7 days Discharge Orders/Prescriptions Prescriptions: New codeine-guaifenesin 10-100 mg/5 mL Liquid 5 ml PO Q6H PRN (Reason: cough) Qty: 118 0RF guaifenesin [Mucus Relief ER] 1,200 mg Tablet Extended Release 12hr 1,200 mg PO BID Qty: 0 0RF levofloxacin 750 mg tablet 750 mg PO Q24H Qty: 5 0RF Continued atorvastatin 20 mg tablet 20 mg PO DAILY dapagliflozin propanediol [Farxiga] 10 mg tablet 10 mg PO DAILY Ozempic 2 mg/dose (8 mg/3 mL) pen injector 2 mg subcut QWEEK Patient Comments: wednesday sertraline 100 mg tablet 100 mg PO DAILY valsartan 80 mg tablet 80 mg PO DAILY Referrals / Follow Up: Tapan Chowdhury MD [Non-Staff] - In 1 Week Mookie Sandoval DO [Primary Care Provider] - Disposition Disposition (needs filled in before D/C Order can be placed): Home, Self Care Charges/Coding Visit Charges Inpatient E&M: 18423 Disch Hosp >30min
[2023-10-13 09:44] LABS: Pathologist Review Reviewed
== END 2023-10-11 10:48 | disposition home or self-care (01) | DRG 195 ==
LOC: ED 12:38 → MS3 13:15
PROVIDERS: Emergency Provider Emergency Medicine; Visit Provider Internal Medicine
DX: J13 Pneumonia due to Streptococcus pneumoniae (principal); D64.9 Anemia, unspecified; E11.65 Type 2 diabetes mellitus with hyperglycemia; E66.9 Obesity, unspecified; D72.829 Elevated white blood cell count, unspecified; I10 Essential (primary) hypertension; F32.A Depression, unspecified; E78.00 Pure hypercholesterolemia, unspecified; R79.89 Other specified abnormal findings of blood chemistry
CPT/HCPCS: 36415; 71046; 71275; 80048; 82962; 83036; 84484; 85025; 85379; 87040; 87070; 87077; 87186; 87205; 87449; 87631; 87641; 93005; 94640; 94667; 94668; 94762; 99252; 99285; J7030; Q9967; A4216; G0463